=== PATIENT | male | born 1935 | race African-American/Black ===

== ENCOUNTER 2018-05-03 21:18 | Inpatient (IN) | payer OTHER ==
[~2018-05-03] VITALS: Ht 185.4 cm; Wt 81.8 kg
[2018-05-03 22:20] LABS: Basophils # (auto) 0.1 uL; Basophils % (auto) 0.8 % (0.0-2.0); Eosinophils # (auto) 0 uL; Eosinophils % (auto) 0.3 % (0.0-7.0); Hematocrit 45.9 % (41.0-53.0); Hemoglobin 14.6 g/dL (13.5-17.5); Lymphocytes # (auto) 1.2 uL; Lymphocytes % (auto) 17.3 % (10.0-50.0); Mean Corpuscular Hemoglobin 25.2 pg (28.0-32.0); Mean Corpuscular Hgb Conc. 31.7 g/dL (32.0-36.0); Mean Corpuscular Volume 79.5 fL (80.0-100.0); Monocytes # (auto) 0.8 uL; Monocytes % (auto) 11.8 % (0.0-12.0); Neutrophils % (auto) 69.8 % (37.0-80.0); Nucleated Red Blood Cells % 0.1 %; Platelet Count (auto) 147 10^3/uL (140-450); Red Blood Cells 5.77 10^6/uL (4.5-5.90); Red Cell Distribution Width 14.7 % (11.8-14.3); White Blood Cell 7.1 10^3/uL (4.4-10.8)
[2018-05-03 22:37] LABS: Albumin 3.5 g/dL (3.4-5.0); Calcium 8.9 mg/dL (8.5-10.1); Magnesium 2.8 mg/dL (1.6-2.6)
[2018-05-03 22:42] LABS: Bilirubin, Total 1.1 mg/dL (0.2-1.0); Potassium 2.7 mmol/L (3.5-5.1); Total Protein 7.9 g/dL (6.4-8.2)
[2018-05-03] MEDS ORDERED: POTASSIUM CHL 20 Meq TABLET PO ONE (23:00)
[2018-05-03] MEDS: POTASSIUM CHL 20MEQ/100ML 100 ML IV SCH (23:15)
[2018-05-04] MEDS ORDERED: LORazepam 2MG/ML-1ML VIAL IV ONE (00:15)
[2018-05-04] MEDS: POTASSIUM CHL 20MEQ/100ML 100 ML IV SCH (01:46)
[2018-05-04] MEDS ORDERED: SODIUM CHLORIDE 0.9% 1,000 ML IV ONE (02:15)
[2018-05-04] MEDS ORDERED: FUROSEMIDE 40 MG/4 ML VIAL IV ONE (03:15)
[2018-05-04] MEDS ORDERED: ACETAMINOPHEN 500 MG TAB PO PRN (03:15)
[2018-05-04 05:32] VITALS: BP 126/73
[2018-05-04 07:18] LABS: Anion Gap 11 (5-15); BUN/Creatinine Ratio 21.6; Blood Urea Nitrogen 22 mg/dL (7-18); Calcium 8.7 mg/dL (8.5-10.1); Carbon Dioxide 23 mmol/L (21-32); Chloride 108 mmol/L (98-107); GFR African American 90 mL/min; GFR Non-African American 74 mL/min; Glucose 102 mg/dL (74-106); Sodium 142 mmol/L (136-145)
[2018-05-04 07:34] LABS: Basophils # (auto) 0 uL; Basophils % (auto) 0.2 % (0.0-2.0); Eosinophils # (auto) 0 uL; Hematocrit 48.3 % (41.0-53.0); Hemoglobin 15.3 g/dL (13.5-17.5); Lymphocytes % (auto) 18.1 % (10.0-50.0); Mean Corpuscular Hemoglobin 25.7 pg (28.0-32.0); Mean Corpuscular Hgb Conc. 31.7 g/dL (32.0-36.0); Monocytes # (auto) 0.6 uL; Monocytes % (auto) 10.5 % (0.0-12.0); Neutrophils % (auto) 71.2 % (37.0-80.0); Nucleated Red Blood Cells % 0.1 %; Platelet Count (auto) 120 10^3/uL (140-450); Red Blood Cells 5.96 10^6/uL (4.5-5.90); Red Cell Distribution Width 15.4 % (11.8-14.3); White Blood Cell 5.6 10^3/uL (4.4-10.8)
[2018-05-04] MEDS: LORazepam 2MG/ML-1ML VIAL IV PRN (08:16)
[2018-05-04 09:59] LABS: INR 1.17 (0.9-1.15); Prothrombin Time 12.4 sec (9.27-12.13)
[2018-05-04] MEDS: PANTOPRAZOLE 40 MG/10 ML VIAL IV SCH (10:12)
[2018-05-04] MEDS ORDERED: POTASSIUM CHL 20MEQ/100ML 100 ML IV ONE (13:15)
[2018-05-04] MEDS ORDERED: cefTRIAXone 1GM/50ML D5W 50 ML IV ONE (13:15)
[2018-05-04] MEDS ORDERED: diphenhdrAMINE 50mg/ml (500mg/10ml VIAL) ONE (13:32)
[2018-05-04] MEDS ORDERED: SODIUM CHLORIDE LOCK 10 ML ONE (13:32)
[2018-05-04] MEDS: metroNIDAZOLE 500MG/100ML 100 ML IV SCH ×2 (14:00→22:18)
[2018-05-04] MEDS: MIDAZOLAM HCL 5 MG/ML-1ML VIAL ONE ×3 (15:39→15:52)
[2018-05-04] MEDS: fentaNYL CITRATE 100 MCG/2 ML VL ONE ×3 (15:39→15:52)
[2018-05-04 18:22] LABS: Urine Bacteria NONE SEEN /hpf (None Seen); Urine Blood Negative /uL (Negative); Urine Mucus FEW (None Seen); Urine Specific Gravity 1.019 (1.001-1.035); Urine Sperm PRESENT /hpf (None Seen); Urine WBC 2 /hpf (0 - 3)
[2018-05-04 22:23] VITALS: BP 131/77
[2018-05-05 04:28] VITALS: BP 105/80
[2018-05-05 05:51] LABS: Basophils # (auto) 0 uL; Basophils % (auto) 0.2 % (0.0-2.0); Eosinophils # (auto) 0 uL; Eosinophils % (auto) 0.1 % (0.0-7.0); Hematocrit 42.9 % (41.0-53.0); Hemoglobin 13.7 g/dL (13.5-17.5); Lymphocytes # (auto) 0.9 uL; Lymphocytes % (auto) 10.1 % (10.0-50.0); Mean Corpuscular Hemoglobin 25.4 pg (28.0-32.0); Mean Corpuscular Volume 79.4 fL (80.0-100.0); Monocytes # (auto) 0.8 uL; Monocytes % (auto) 8.8 % (0.0-12.0); Neutrophils % (auto) 80.8 % (37.0-80.0); Nucleated Red Blood Cells % 0.1 %; Platelet Count (auto) 129 10^3/uL (140-450); Red Blood Cells 5.41 10^6/uL (4.5-5.90); Red Cell Distribution Width 14.4 % (11.8-14.3); White Blood Cell 8.7 10^3/uL (4.4-10.8)
[2018-05-05] MEDS: metroNIDAZOLE 500MG/100ML 100 ML IV SCH ×3 (06:03→23:17)
[2018-05-05 06:07] LABS: Calcium 7.6 mg/dL (8.5-10.1)
[2018-05-05 06:14] LABS: Albumin 2.5 g/dL (3.4-5.0); BUN/Creatinine Ratio 18.4; Bilirubin, Total 1.1 mg/dL (0.2-1.0)
[2018-05-05 06:24] LABS: Potassium 1.9 mmol/L (3.5-5.1)
[2018-05-05] MEDS: POTASSIUM CHL 20MEQ/100ML 100 ML IV SCH ×4 (06:59→20:01)
[2018-05-05 08:42] VITALS: BP 108/76
[2018-05-05] MEDS: cefTRIAXone 1GM/50ML D5W 50 ML IV SCH (10:35)
[2018-05-05] MEDS: PANTOPRAZOLE 40 MG/10 ML VIAL IV SCH (10:35)
[2018-05-05 13:00] VITALS: BP 128/78
[2018-05-05] MEDS: SOD CHL 0.9%/ KCL 20MEQ 1,000 ML IV SCH ×3 (14:27→22:45)
[2018-05-05 15:09] LABS: Albumin 2.8 g/dL (3.4-5.0); Calcium 7.7 mg/dL (8.5-10.1)
[2018-05-05 15:12] LABS: BUN/Creatinine Ratio 12.6
[2018-05-05 15:15] LABS: Bilirubin, Total 0.8 mg/dL (0.2-1.0); Total Protein 6.4 g/dL (6.4-8.2)
[2018-05-05 15:17] LABS: Potassium 2.2 mmol/L (3.5-5.1)
[2018-05-05] MEDS ORDERED: POTASSIUM CHL 20MEQ/100ML 100 ML IV SCH (15:30)
[2018-05-05 17:04] VITALS: BP 110/77
[2018-05-05 20:31] VITALS: BP 126/65
[2018-05-05] MEDS: chlordiazePOXIDE HCL 25 MG CAP PO PRN (21:04)
[2018-05-05] MEDS: LORazepam 2MG/ML-1ML VIAL IV PRN (22:10)
[2018-05-06] MEDS: POTASSIUM CHL 20MEQ/100ML 100 ML IV SCH ×9 (00:15→22:55)
[2018-05-06] MEDS ORDERED: POTASSIUM CHL 20MEQ/100ML 100 ML IV ONE (01:55)
[2018-05-06 04:24] VITALS: BP 128/57
[2018-05-06] MEDS: metroNIDAZOLE 500MG/100ML 100 ML IV SCH ×3 (05:47→22:00)
[2018-05-06 07:04] LABS: Hematocrit 41.9 % (41.0-53.0); Hemoglobin 13.2 g/dL (13.5-17.5); Lymphocytes # (auto) 1.5 uL; Monocytes # (auto) 0.8 uL; Monocytes % (auto) 9.9 % (0.0-12.0); Nucleated Red Blood Cells % 0.1 %
[2018-05-06 07:06] LABS: Basophils # (auto) 0.1 uL; Basophils % (auto) 0.8 % (0.0-2.0); Eosinophils # (auto) 0.1 uL; Eosinophils % (auto) 0.9 % (0.0-7.0); Lymphocytes % (auto) 18.5 % (10.0-50.0); Mean Corpuscular Hemoglobin 25.4 pg (28.0-32.0); Mean Corpuscular Hgb Conc. 31.5 g/dL (32.0-36.0); Mean Corpuscular Volume 80.6 fL (80.0-100.0); Neutrophils # (auto) 5.6 uL; Neutrophils % (auto) 69.9 % (37.0-80.0); Platelet Count (auto) 126 10^3/uL (140-450); Red Blood Cells 5.21 10^6/uL (4.5-5.90); Red Cell Distribution Width 14.9 % (11.8-14.3)
[2018-05-06 07:20] LABS: Albumin 2.5 g/dL (3.4-5.0); BUN/Creatinine Ratio 10.3; Calcium 7.6 mg/dL (8.5-10.1)
[2018-05-06 07:22] LABS: Bilirubin, Total 0.6 mg/dL (0.2-1.0)
[2018-05-06] MEDS: LORazepam 2MG/ML-1ML VIAL IV PRN ×3 (07:27→23:05)
[2018-05-06 08:00] LABS: Potassium 2.2 mmol/L (3.5-5.1)
[2018-05-06 08:55] VITALS: BP 126/62
[2018-05-06] MEDS: PANTOPRAZOLE 40 MG/10 ML VIAL IV SCH (10:19)
[2018-05-06] MEDS: cefTRIAXone 1GM/50ML D5W 50 ML IV SCH (10:19)
[2018-05-06 12:26] VITALS: BP 128/70
[2018-05-06] MEDS: SOD CHL 0.9%/ KCL 20MEQ 1,000 ML IV SCH ×3 (14:00→22:55)
[2018-05-06] MEDS: chlordiazePOXIDE HCL 25 MG CAP PO PRN (16:43)
[2018-05-06] MEDS: THIAMINE 100mg/ml INJ (200mg/2ml VIAL) IV SCH (17:35)
[2018-05-06 22:41] VITALS: BP 135/70
[2018-05-07] MEDS: POTASSIUM CHL 20MEQ/100ML 100 ML IV SCH ×5 (00:58→19:32)
[2018-05-07 05:46] VITALS: BP 142/74
[2018-05-07] MEDS: metroNIDAZOLE 500MG/100ML 100 ML IV SCH ×3 (06:02→23:07)
[2018-05-07 06:20] LABS: Basophils # (auto) 0.1 uL; Eosinophils # (auto) 0.1 uL; Eosinophils % (auto) 1.9 % (0.0-7.0); Lymphocytes # (auto) 1.3 uL; Monocytes # (auto) 0.7 uL; Nucleated Red Blood Cells % 0.1 %; Red Cell Distribution Width 14.7 % (11.8-14.3)
[2018-05-07 06:22] LABS: Basophils % (auto) 0.8 % (0.0-2.0); Hematocrit 43.1 % (41.0-53.0); Hemoglobin 14.1 g/dL (13.5-17.5); Lymphocytes % (auto) 17.9 % (10.0-50.0); Mean Corpuscular Hemoglobin 26.1 pg (28.0-32.0); Mean Corpuscular Hgb Conc. 32.6 g/dL (32.0-36.0); Monocytes % (auto) 9.7 % (0.0-12.0); Neutrophils # (auto) 5.2 uL; Neutrophils % (auto) 69.7 % (37.0-80.0); Platelet Count (auto) 117 10^3/uL (140-450); Red Blood Cells 5.39 10^6/uL (4.5-5.90); White Blood Cell 7.4 10^3/uL (4.4-10.8)
[2018-05-07] MEDS: SOD CHL 0.9%/ KCL 20MEQ 1,000 ML IV SCH (06:45)
[2018-05-07 06:49] LABS: Albumin 2.7 g/dL (3.4-5.0); BUN/Creatinine Ratio 6.7; Bilirubin, Total 0.6 mg/dL (0.2-1.0); Calcium 7.5 mg/dL (8.5-10.1); Total Protein 6.2 g/dL (6.4-8.2)
[2018-05-07 06:52] LABS: Potassium 2.2 mmol/L (3.5-5.1)
[2018-05-07] MEDS: cefTRIAXone 1GM/50ML D5W 50 ML IV SCH (11:27)
[2018-05-07] MEDS: PANTOPRAZOLE 40 MG/10 ML VIAL IV SCH (11:27)
[2018-05-07] MEDS: THIAMINE 100mg/ml INJ (200mg/2ml VIAL) IV SCH (11:28)
[2018-05-07] MEDS ORDERED: IOHEXOL 300 MG/ML 100ML BOTTLE IJ ONE (12:27)
[2018-05-07] MEDS ORDERED: GASTROGRAFIN 30 ML SOL ONE (12:30)
[2018-05-07] MEDS: LORazepam 2MG/ML-1ML VIAL IV PRN (14:44)
[2018-05-07] MEDS ORDERED: POTASSIUM CHL 20MEQ/100ML 100 ML IV SCH (16:15)
[2018-05-07] MEDS ORDERED: SOD CHL 0.45% IV ONE ×2 (17:00)
[2018-05-07] MEDS ORDERED: POTASSIUM CHLORIDE IV ONE (17:00)
[2018-05-07] MEDS ORDERED: POTASSIUM PHOSPHATE IV ONE (17:00)
[2018-05-07] MEDS: Ensure Enlive Strawberry 8oz Bottle PO SCH (18:00)
[2018-05-07] MEDS ORDERED: MAGNESIUM SULFATE 1GM/100ML 100 ML IV SCH (19:00)
[2018-05-07] MEDS ORDERED: MULTIPLE VITAMIN IV ONE ×5 (19:30)
[2018-05-07] MEDS ORDERED: MAGNESIUM SULF IV ONE ×5 (19:30)
[2018-05-07] MEDS ORDERED: FOLIC ACID IV ONE ×5 (19:30)
[2018-05-07] MEDS ORDERED: [UNRECOGNIZED DRUG - OTHER] IV ONE ×5 (19:30)
[2018-05-07 21:30] VITALS: BP 111/68
[2018-05-08 04:47] VITALS: BP 135/68
[2018-05-08] MEDS: metroNIDAZOLE 500MG/100ML 100 ML IV SCH ×3 (05:33→22:43)
[2018-05-08 07:09] LABS: BUN/Creatinine Ratio 6.3; Calcium 7.7 mg/dL (8.5-10.1)
[2018-05-08 07:41] LABS: Potassium 2.3 mmol/L (3.5-5.1)
[2018-05-08] MEDS: Ensure Enlive Strawberry 8oz Bottle PO SCH ×3 (08:00→18:00)
[2018-05-08] MEDS ORDERED: SOD CHL 0.45% IV ONE (08:30)
[2018-05-08] MEDS ORDERED: POTASSIUM CHLORIDE IV ONE (08:30)
[2018-05-08 09:00] VITALS: BP 119/65
[2018-05-08] MEDS: THIAMINE 100mg/ml INJ (200mg/2ml VIAL) IV SCH (09:14)
[2018-05-08] MEDS: LORazepam 2MG/ML-1ML VIAL IV PRN (09:15)
[2018-05-08] MEDS: PANTOPRAZOLE 40 MG/10 ML VIAL IV SCH (09:15)
[2018-05-08] MEDS: cefTRIAXone 1GM/50ML D5W 50 ML IV SCH (09:15)
[2018-05-08 13:00] VITALS: BP 127/73
[2018-05-08] MEDS: POTASSIUM EFFERVESENT TAB 25 MEQ PO SCH ×2 (15:01→22:43)
[2018-05-08 17:00] VITALS: BP 130/69
[2018-05-08] MEDS ORDERED: LORazepam 2MG/ML-1ML VIAL IV PRN (17:00)
[2018-05-08 18:22] VITALS: BP 124/76
[2018-05-08 19:18] LABS: Calcium 7.6 mg/dL (8.5-10.1)
[2018-05-08 19:56] LABS: Potassium 2.7 mmol/L (3.5-5.1)
[2018-05-08] MEDS ORDERED: POTASSIUM EFFERVESENT TAB 25 MEQ PO ONE (20:15)
== END 2018-05-09 00:30 | disposition short-term general hospital (02) | DRG 388 ==
LOC: ER 21:18 → TELE-EAST 21:19 → TELE-WESTW 05-08 22:58 → TELE-EAST 05-08 23:32
PROVIDERS: ADMIT Nurse Practitioner Family; ATTEND Family Medicine
PROC: 0DJD8ZZ Inspection of Lower Intestinal Tract, Via Natural or Artificial Opening Endoscopic (ICD-10-PCS; principal; 2018-05-04 15:38)
DX: K56.2 Volvulus (principal); G93.41 Metabolic encephalopathy; J98.11 Atelectasis; E87.6 Hypokalemia; E86.0 Dehydration; F03.90 Unspecified dementia, unspecified severity, without behavioral disturbance, psychotic disturbance, mood disturbance, and anxiety; F10.20 Alcohol dependence, uncomplicated; F17.210 Nicotine dependence, cigarettes, uncomplicated; I70.0 Atherosclerosis of aorta; K40.90 Unilateral inguinal hernia, without obstruction or gangrene, not specified as recurrent; K56.609 Unspecified intestinal obstruction, unspecified as to partial versus complete obstruction; M47.814 Spondylosis without myelopathy or radiculopathy, thoracic region; Z85.038 Personal history of other malignant neoplasm of large intestine; Z92.3 Personal history of irradiation; Z98.49 Cataract extraction status, unspecified eye
CPT/HCPCS: 36415; 43760; 70450; 71045; 74018; 74176; 74178; 80048; 80053; 80320; 81001; 82140; 82270; 83605; 83690; 83735; 83880; 84132; 84484; 85025; 85610; 86850; 86900; 86901; 87040; 87086; 87493; 93005; 96365; 96366; 96375; C9113; G0378; J0696; J1200; J2250; J3480; J3490